=== PATIENT | female | born 1965 | race Hispanic/Latino ===

== ENCOUNTER → 2024-11-07 | Outpatient (REF) | payer OTHER ==
[~2024-11-07] MED LIST: DIATRIZOATE MEGL/DIATRIZOA SOD 30 ML BTL PO ONE; GLIMEPIRIDE2 MG PO; IOPAMIDOL 370 MG/ML 100 ML INFUS..BTL INJ ONE; LEVOTHYROXINE112 MCG PO; LIPITOR10 MG PO; METFORMIN HCL500 MG PO; Sodium Chloride 0.9% 50ML Bag ONE; TRULICITY0.75 MG/0. SC
[2024-11-07 09:50] LABS: CREATININE, SERUM 0.87 mg/dL (0.57-1.11)
== END ==
LOC: CT 07:54
PROVIDERS: ATTEND Internal Medicine Gastroenterology
DX: K63.89 Other specified diseases of intestine (principal)
CPT/HCPCS: 36415; 74177; 82565; 84520; Q9963; Q9967